=== PATIENT | female | born 1970 | race Caucasian/White ===

== ENCOUNTER 2017-01-28 14:16 | Emergency (ER) | payer OTHER ==
[~2017-01-28 14:16] MED LIST: ANSAID100 MG PO; ATENOLOL25 MG PO; CIPRO PO; FAMOTIDINE PO; HYDROCODON-ACE1 EAC4 PO; HYDROCODON-ACE1 EAC7 PO; IBUPROFEN800 MG PO; LORTAB 101 TAB 10/5 PO; NEXIUM20 MG PO; PRILOSEC20 M1 PO; PRILOSEC20 MG PO; TENORMIN25 M1 PO; TENORMIN25 MG PO; TRAMADOL HCL50 M1 PO; VICODIN 5/1 TAB 5/50 PO; VOLTAREN50 MG PO; XANAX1 MG PO
[2017-01-28 15:10] LABS: BASOPHIL# 0.1 X10e3 (0-0.3); EOSINOPHIL# 0.1 X10e3 (0-0.7); EOSINOPHIL% 1.9 % (0.0-7.0); HEMATOCRIT 43.5 % (35.0-45.0); HEMOGLOBIN 14.5 gm/dL (12.0-16.0); LYMPHOCYTE# 1.7 X10e3 (1.0-3.5); LYMPHOCYTE% 24.1 % (17.0-45.0); MEAN CORPUSCULAR HGB CONC 33.3 g/dL (30-36); MEAN PLATELET VOLUME 7.1 FL (6.5-11.5); MONOCYTE# 0.3 X10e3 (0-1.0); MONOCYTE% 4.2 % (3.0-12.0); NEUTROPHIL% 68.8 % (40-75); PLATELET COUNT 304 X10e3 (140-420); RED BLOOD COUNT 4.39 X10e (3.90-5.30); RED CELL DISTRIBUTION WIDTH 12.7 % (11.0-15.5); WHITE BLOOD COUNT 7.2 X10e3 (4.0-10.5)
[2017-01-28 15:11] LABS: DIFF IND NO
[2017-01-28 15:38] LABS: ALBUMIN SERUM 4.7 g/dL (3.5-5.0); ALKALINE PHOSPHATASE 57 U/L (32-92); ALT (SGPT) 40 U/L (10-40); AST (SGOT) 39 U/L (10-42); BILIRUBIN,TOTAL 0.4 mg/dL (0.2-2.0); BLOOD UREA NITROGEN 10 mg/dL (9-23); BUN/CREATININE RATIO 16.66; CALCIUM SERUM 9.3 mg/dL (8.4-10.2); CARBON DIOXIDE 23 mmol/L (22-31); CHLORIDE 109 mmol/L (100-111); CREATININE SERUM 0.6 mg/dL (0.6-1.4); GLOM FILT RATE Estimated 109.3 mL/min (>60); GLUCOSE FASTING 100 mg/dL (70-110); LIPASE 32 U/L (22-51); POTASSIUM 3.5 mmol/L (3.5-5.1); SODIUM 141 mmol/L (135-145)
[2017-01-28 15:39] LABS: BILIRUBIN, DIRECT <0.1 mg/dL (0.0-0.2); BILIRUBIN,INDIRECT 0.3 mg/dL (0.0-0.9)
== END 2017-01-28 16:04 | disposition left against medical advice (07) ==
LOC: CED 14:16
PROVIDERS: Emergency Medicine
DX: Z53.21 Procedure and treatment not carried out due to patient leaving prior to being seen by health care provider (principal)
CPT/HCPCS: 80048; 80076; 83690; 85025

== ENCOUNTER 2017-04-14 10:34 | Emergency (ER) | payer OTHER ==
[~2017-04-14] VITALS: Ht 160 cm; Wt 59.0 kg
--- NOTE | ~2017-04-14 | CR127 ---
[facility] A Service of [facility] & [facility] RADIOLOGY TEXT RESULTS PATIENT: SIDDHARTHA COTTER LOCATION: [facility] : 70 UNIT #: [id number] AGE: [address]: Dana Lo APRN SEX: F ORDER DR: [id number] [facility] [address] [place], [place] [address] [id number] MR#: [id number] Acc #: [id number] NAME: SIDDHARTHA COTTER : 1970 SEX: F STUDY DATE/TIME: 04/14/2017 10:52 UNIT: [facility] ROOM: STUDY DESCRIPTION: CR Foot Complete Min 3 View Rt Attending Physician: Dana Lo A.P.R.N. Ordering Physician: Ed Doctor [id number] [facility] Primary Care Physician: Carmen Cookhead MEDICAL IMAGING REPORT This report is preliminary unless electronic signature is present EXAM Right foot 04/14 INDICATIONS Foot pain after falling last night. FINDINGS 3 views of the right foot were obtained. There is a comminuted nondisplaced fracture of the distal diaphysis of the fifth metatarsal. No other fractures are seen. There is some soft tissue swelling. 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 IMPRESSION Comminuted but nondisplaced fracture of the distal diaphysis of the fifth metatarsal. Dictated by... Darryl Fang Jr., M.D. THIS IS AN ELECTRONICALLY VERIFIED REPORT Darryl Fang Jr., M.D. at 04/15/2017 2:18 PM JESSICA/lamberto TD: 04/14/2017 15:59 JOB #: [id number] MEDICAL IMAGING REPORT Page 1 of 1 COPY
== END 2017-04-14 11:59 | disposition home or self-care (01) ==
LOC: CFTX 10:34 → CED 10:34 → CFTX 11:20
DX: S92.354A Nondisplaced fracture of fifth metatarsal bone, right foot, initial encounter for closed fracture (principal); M54.9 Dorsalgia, unspecified; G89.29 Other chronic pain; F17.210 Nicotine dependence, cigarettes, uncomplicated; I10 Essential (primary) hypertension; K21.9 Gastro-esophageal reflux disease without esophagitis; Z88.8 Allergy status to other drugs, medicaments and biological substances; X50.1XXA Overexertion from prolonged static or awkward postures, initial encounter; Y92.410 Unspecified street and highway as the place of occurrence of the external cause
CPT/HCPCS: 29540; 73630; 99283